=== PATIENT | male | born 1985 | race African-American/Black ===

== ENCOUNTER 2020-09-29 12:56 | Emergency (ER) | payer OTHER ==
[~2020-09-29] VITALS: Ht 185.4 cm; Wt 77.0 kg
[2020-09-29 13:14] VITALS: BP 135/90
[2020-09-29] MEDS ORDERED: ACETAMINOPHEN 325MG TABLET PO NR (13:30)
== END 2020-09-29 15:06 | disposition home or self-care (01) ==
LOC: ER 12:56
DX: S60.221A Contusion of right hand, initial encounter (principal); S80.01XA Contusion of right knee, initial encounter; Y04.0XXA Assault by unarmed brawl or fight, initial encounter; Y93.89 Activity, other specified; Y92.512 Supermarket, store or market as the place of occurrence of the external cause; K64.9 Unspecified hemorrhoids
CPT/HCPCS: 99283